=== PATIENT | male | born 1955 | race Caucasian/White ===

== ENCOUNTER 2017-09-27 05:58 | Day surgery (SDC) | payer BC ==
[2017-09-27] MEDS ORDERED: RINGER'S SOLUTION,LACTATED 1,000 ML IV PRN ×2 (06:00→07:14)
[2017-09-27] MEDS ORDERED: RINGER'S SOLUTION,LACTATED 1,000 ML IV ONE (06:23)
[2017-09-27] MEDS ORDERED: PANTOPRAZOLE SODIUM 40 MG in NORMAL SALINE 100 ML IV ONE (07:14)
[2017-09-27] MEDS ORDERED: PANTOPRAZOLE SODIUM 40 MG/100 ML PIGGYBACK IV ONE (07:31)
[2017-09-27 08:10] VITALS: BP 113/85
--- NOTE | 2017-09-27 08:36 | OR ---
Operative Report - Dictated Report Narrative: Operative Report Date of operation: 09/27/2017 Preoperative diagnosis: Vomiting and heartburn Postoperative diagnosis: Hiatal hernia. Gastropathy (pathology and CLOtest pending) Operation: EGD with biopsies Surgeon: Dr Simon Anesthesia: ASHA FRANCO CRNA Indications for procedure: The patient is a 62-year-old male referred by Dr. Araujo. He has a three-year history of bad heartburn which has gotten worse. He vomits every night about 2 hours after laying down. He has obstructive sleep apnea but does not use his CPAP machine. Findings: Hiatal hernia. Gastropathy (pathology and CLOtest pending) findings compatible with obstructive sleep apnea Narrative of procedure: The patient was identified preoperatively, and prior to the administration of anesthetic a multidisciplinary timeout was observed With the patient in the recumbent position, a bite-block was placed, intravenous sedation administered, and the patient's eyes covered with a towel. The flexible fiberoptic gastroscope was advanced into the posterior pharynx which appeared normal. The supraglottic larynx appeared normal. The cords appeared normal, moved well, and opposed in the midline. The scope was advanced under direct vision into the proximal esophagus which appeared normal. The esophagus appeared freely distensible with normal mucosa. The esophageal mucosa appeared normal down to the gastroesophageal junction which was sharp and noninflamed. There was a sliding hiatal hernia. The GE junction appeared normally distensible. The scope was advanced into the stomach proper which was insufflated with air. Immediately apparent was pink gastric erythema with linear erythema on gastric folds. A retroflexed view of the gastric fundus demonstrated a hiatal hernia and irritation. Photograph was taken. The scope was redirected toward the pylorus. The pylorus appeared patent. The scope was advanced into the duodenal bulb which appeared normal. The scope was advanced further to the horizontal portion of the duodenum which appeared normal , specifically the villous architecture appeared well preserved and clear bile was present. The scope was slowly withdrawn through the duodenal bulb with confirmation that no active ulcer was present. The scope was withdrawn into the stomach and cordage sales representative biopsies of gastric mucosa obtained for CLOtest and pathology. The biopsy sites were seen to be hemostatic. The insufflated air was removed, the scope withdrawn from the patient, and the procedure terminated. The patient tolerated the anesthetic and procedure well without complication and was transferred back to the ambulatory surgery area awake and in stable condition. The patient remained stable throughout a period of postoperative observation, was able to tolerate po intake, and was up without assistance. I shared the operative findings with him and his , and he was given copies of the photographs which appear in the medical record. He was given a single dose of Protonix 40 mg IV prior to discharge. He was discharged home with instructions not to engage in hazardous activity today, but may return to normal activity tomorrow and advance diet as tolerated. He is to continue medications as listed in the history and physical exam. I made arrangements to contact the patient with the biopsy reports and will make further recommendation based upon that result. Reviewed and electronically signed
== END 2017-09-27 05:59 | disposition home or self-care (01) ==
LOC: AMB 05:58
PROVIDERS: ATTEND Surgery
PROC: 0DB68ZX Excision of Stomach, Via Natural or Artificial Opening Endoscopic, Diagnostic (ICD-10-PCS; principal; 2017-09-27 07:00)
DX: K29.70 Gastritis, unspecified, without bleeding (principal); K44.9 Diaphragmatic hernia without obstruction or gangrene; K21.9 Gastro-esophageal reflux disease without esophagitis; G47.33 Obstructive sleep apnea (adult) (pediatric); Z68.33 Body mass index [BMI] 33.0-33.9, adult